=== PATIENT | female | born 1930 | race Caucasian/White ===

== ENCOUNTER 2016-11-05 11:19 | Observation (INO) | payer MEDICARE ==
[~2016-11-05] VITALS: Ht 152.4 cm; Wt 64.8 kg
[2016-11-05 11:35] VITALS: BP 149/67; PULSE 77; RESP 16; TEMP 98; O2SAT 96
--- NOTE | 2016-11-05 12:00 | PD ---
HPI Chief Complaint: GI Complaint Time Seen by Provider: 11:49 Travel History International Travel<30 days: No Contact w/Intl Traveler<30days: No Traveled to known affect area: No History of Present Illness HPI This is an 86-year-old female who presents to the emergency department with painless dark blood per rectum that started this morning when she woke up from sleep, saturating several pads, constant, persisting in the emergency department with no associated lightheadedness, dizziness or pain. She says she has been constipated for 2 weeks and has been taking prune juice and had a large bowel movement 2 days ago but she denies any rectal pain. At that time and has been doing fine yesterday since then. She's never had a colonoscopy before. She denies being on any blood thinners. [facility] Past Medical History Narrative Medical Hypertension Diabetes Hypothyroidism Cardiovascular Problems: Yes (htn on meds) Diabetes: Yes (type 2) ?: Not Social History Tobacco Use: No Allergies-Medications (Allergen,Severity, Reaction): Coded Allergies: No Known Allergies (Unverified , 11/05/16) Reported Meds & Prescriptions Reported Meds & Active Scripts Active Reported Calcium 500 + D (Calcium Carbonate-Vitamin D) 500-125 Mg-Unit Tab 1 Tab PO BID Centrum Silver (Multiple Vitamins W/ Minerals) 1 Tab 1 Tab PO DAILY Fish Oil ([place]-3 Fatty Acids) 1,000 Mg Cap DAILY Aleve (Naproxen Sodium) 220 Mg Tab 220 Mg PO DAILY PRN Metformin (Metformin HCl) 500 Mg Tab 500 Mg PO DAILY With a meal Amlodipine (Amlodipine Besylate) 10 Mg Tab 10 Mg PO DAILY Atorvastatin (Atorvastatin Calcium) 20 Mg Tab 20 Mg PO DAILY Levothyroxine (Levothyroxine Sodium) 100 Mcg Tab 100 Mcg PO DAILY Metoprolol Tartrate 25 Mg Tab 25 Mg PO DAILY Review of Systems Except as stated in HPI: all other systems reviewed are Neg Physical Exam Narrative GENERAL:Well appearing, no acute distress SKIN: Warm and dry. HEAD: Atraumatic. Normocephalic. EYES: Pupils equal and round. No injection or drainage. ENT: Moist mucous membranes NECK: Trachea midline. CARDIOVASCULAR: Regular rate and rhythm. No murmur appreciated. RESPIRATORY: Clear to auscultation. Breath sounds equal bilaterally. GASTROINTESTINAL: Abdomen soft, non-tender, nondistended, dried blood with clots around the rectum with no obvious hemorrhoids or fissures MUSCULOSKELETAL: No obvious deformities. NEUROLOGICAL: Awake and alert. No obvious cranial nerve deficits. Moving all extremities. PSYCHIATRIC: Appropriate mood and affect; insight and judgment normal. Data Data Last Documented VS Vital Signs Date Time Temp Pulse Resp B/P Pulse Ox O2 Delivery O2 Flow Rate FiO2 11/05/16 12:34 72 16 121/60 95 Room Air 11/05/16 11:35 98.0 Orders Complete Blood Count With Diff (11/05/16 11:56) Comprehensive Metabolic Panel (11/05/16 11:56) Prothrombin Time / Inr (Pt) (11/05/16 11:56) Act Partial Throm Time (Ptt) (11/05/16 11:56) ^ Insert Iv (11/05/16 11:56) Type And Screen (11/05/16 11:56) Admit Order (Ed Use Only) (11/05/16 13:09) Pantoprazole Inj (Protonix Inj) (11/05/16 13:15) Labs Laboratory Tests Test 11/05/16 12:25 White Blood Count 9.0 TH/MM3 Red Blood Count 3.96 MIL/MM3 Hemoglobin 12.9 GM/DL Hematocrit 37.7 % Mean Corpuscular Volume 95.2 FL Mean Corpuscular Hemoglobin 32.6 PG Mean Corpuscular Hemoglobin 34.2 % Concent Red Cell Distribution Width 12.4 % Platelet Count 262 TH/MM3 Mean Platelet Volume 8.6 FL Neutrophils (%) (Auto) 76.7 % Lymphocytes (%) (Auto) 14.8 % Monocytes (%) (Auto) 6.6 % Eosinophils (%) (Auto) 1.5 % Basophils (%) (Auto) 0.4 % Neutrophils # (Auto) 7.0 TH/MM3 Lymphocytes # (Auto) 1.3 TH/MM3 Monocytes # (Auto) 0.6 TH/MM3 Eosinophils # (Auto) 0.1 TH/MM3 Basophils # (Auto) 0.0 TH/MM3 CBC Comment DIFF FINAL Differential Comment Prothrombin Time 11.1 SEC Prothromb Time International 1.0 RATIO Ratio Activated Partial 26.4 SEC Thromboplast Time Sodium Level 139 MEQ/L Potassium Level 4.6 MEQ/L Chloride Level 101 MEQ/L Carbon Dioxide Level 29.5 MEQ/L Anion Gap 9 MEQ/L Blood Urea Nitrogen 18 MG/DL Creatinine 0.67 MG/DL Estimat Glomerular Filtration 83 ML/MIN Rate Random Glucose 117 MG/DL Calcium Level 9.3 MG/DL Total Bilirubin 0.5 MG/DL Aspartate Amino Transf 19 U/L (AST/SGOT) Alanine Aminotransferase 27 U/L (ALT/SGPT) Alkaline Phosphatase 72 U/L Total Protein 7.6 GM/DL Albumin 3.7 GM/DL MDM Medical Decision Making Medical Screen Exam Complete: Yes Emergency Medical Condition: Yes Interpretation(s) Afebrile, no tachycardia, hypertensive No leukocytosis Electrolytes are reassuring Coags are normal Differential Diagnosis Diverticulosis, AVM, colon cancer, hemorrhoids, ulcer Narrative Course This is an 86-year-old female who presents to the emergency department with painless dark blood from the rectum that started this morning and has persisted. I don't appreciate any hemorrhoids on exam although she does have a recent history of constipation. Given the persistence of bleeding I think it's reasonable to admit the patient for colonoscopy. Labs were obtained which were reassuring and her vital signs have been normal. Diagnosis Primary Impression: GI bleed Qualified Code: K92.2 - Gastrointestinal hemorrhage, unspecified gastrointestinal hemorrhage type Admitting Information Admitting Physician Requests: Observation Bibi Fair MD Nov 05, 2016 12:00
[2016-11-05] MEDS ORDERED: NAPR220T95 PO (12:06)
[2016-11-05] MEDS ORDERED: AMLO10TA2 PO (12:06)
[2016-11-05] MEDS ORDERED: ATOR20TA15 PO (12:06)
[2016-11-05] MEDS ORDERED: CENTTAB PO (12:06)
[2016-11-05] MEDS ORDERED: METF500T PO (12:06)
[2016-11-05] MEDS ORDERED: METO25TA3 PO (12:06)
[2016-11-05] MEDS ORDERED: FISH1000 (12:06)
[2016-11-05] MEDS ORDERED: LEVO100T5 PO (12:06)
[2016-11-05] MEDS ORDERED: CALCTAB23 PO (12:06)
[2016-11-05 12:34] VITALS: BP 121/60; PULSE 72; RESP 16; O2SAT 95
[2016-11-05 12:39] LABS: BASOPHIL % 0.4 % (0.0-2.0); EOSINOPHIL # 0.1 TH/MM3 (0-0.4); EOSINOPHIL % 1.5 % (0.0-4.0); HEMATOCRIT 37.7 % (35.0-46.0); HEMO FLAGS DIFF FINAL; LYMPH % 14.8 % (9.0-44.0); LYMPHOCYTE # 1.3 TH/MM3 (1.0-4.8); MEAN CELL VOLUME 95.2 FL (80.0-100.0); MEAN CORPUSCULAR HEMOGLOBIN 32.6 PG (27.0-34.0); MEAN CORPUSCULAR HGB CONC 34.2 % (32.0-36.0); MONO % 6.6 % (0.0-8.0); NEUT % 76.7 % (16.0-70.0); PLATELET COUNT 262 TH/MM3 (150-450); RED BLOOD COUNT 3.96 MIL/MM3 (4.00-5.30); RED CELL DISTRIBUTION WIDTH 12.4 % (11.6-17.2)
[2016-11-05 12:47] LABS: CHLORIDE 101 MEQ/L (98-107); POTASSIUM 4.6 MEQ/L (3.5-5.1); SODIUM (NA) 139 MEQ/L (136-145)
[2016-11-05 12:51] LABS: ANION GAP 9 MEQ/L (5-15); APTT (PATIENT) 26.4 SEC (24.3-30.1); BICARBONATE 29.5 MEQ/L (21.0-32.0); PROTHROMBIN TIME - PATIENT 11.1 SEC (9.8-11.6)
[2016-11-05 12:52] LABS: BLOOD UREA NITROGEN 18 MG/DL (7-18)
[2016-11-05 12:54] LABS: ALT (GPT) 27 U/L (10-53); AST (GOT) 19 U/L (15-37); GLOMERULAR FILTRATION RATE 83 ML/MIN (>89)
[2016-11-05 12:56] LABS: TOTAL BILIRUBIN ADULT 0.5 MG/DL (0.2-1.0)
[2016-11-05 12:57] LABS: ALKALINE PHOSPHATASE 72 U/L (45-117)
[2016-11-05] MEDS ORDERED: PANTOPRAZOLE SODIUM 40 MG VIAL IV PUSH ONE (13:15)
[2016-11-05] MEDS ORDERED: SODIUM CHLORIDE 0.9% FLUSH 5 ML FLUSH IV PRN (13:30)
[2016-11-05] MEDS ORDERED: DEXTROSE 50% IN WATER 50 ML VIAL(D50) IV PUSH PRN (13:30)
[2016-11-05] MEDS ORDERED: SODIUM CHLORIDE 0.9% FLUSH 5 ML FLUSH FLUSH PRN (13:30)
[2016-11-05] MEDS ORDERED: GLUCAGON 1 MG/ML VIAL OTHER PRN (13:30)
[2016-11-05 13:53] VITALS: BP 144/64; PULSE 73; RESP 16; O2SAT 95
[2016-11-05] MEDS ORDERED: ACETAMINOPHEN 325 MG TAB PO PRN (14:00)
--- NOTE | 2016-11-05 14:43 | HHI.HP ---
cc: Mirtha Rios MD [facility] Mirtha Rios MD Admission Diagnosis gi bleeding Diagnoses: (1) Rectal bleeding Diagnosis: Principal Chief Complaint: rectal "hemorrhage" Travel History International Travel<30 Days: No Contact w/Intl Traveler <30 Da: No Traveled to Known Affected Are: No History of Present Illness 86-year-old female with history of NIDDM, hypertension, thyroid disease, and HLD presents with complaint of rectal "hemorrhage". Patient states bleeding started at 8 AM and she had 4 different episodes. She denies any rectal pain. She denies any fevers or chills. Denies any recent vomiting or diarrhea. She does state she was constipated for 2 weeks and drank some prune juice. She denies any dizziness, lightheadedness, chest pain, or shortness of breath. Patient has never had a colonoscopy. She states she had a recent fall but it was when she had gotten up at night and stumbled in the dark when she was trying to sit down. She denies any head injury or syncope prior to fall, but does suffer from vertigo. States her legs have been swelling for the past month. Patient admits to chronic increased urinary frequency and incontinence but denies any dysuria. Denies being on anticoagulants. Review of Systems Except as stated in HPI: all other systems reviewed are Neg Past Family Social History Past Medical History NIDDM HTN HLD Thyroid disease Spinal stenosis Past Surgical History NONE Reported Medications Calcium 500 + D (Calcium Carbonate-Vitamin D) 500-125 Mg-Unit Tab 1 Tab PO BID Centrum Silver (Multiple Vitamins W/ Minerals) 1 Tab 1 Tab PO DAILY Fish Oil ([place]-3 Fatty Acids) 1,000 Mg Cap DAILY Aleve (Naproxen Sodium) 220 Mg Tab 220 Mg PO DAILY PRN Metformin (Metformin HCl) 500 Mg Tab 500 Mg PO DAILY With a meal Amlodipine (Amlodipine Besylate) 10 Mg Tab 10 Mg PO DAILY Atorvastatin (Atorvastatin Calcium) 20 Mg Tab 20 Mg PO DAILY Levothyroxine (Levothyroxine Sodium) 100 Mcg Tab 100 Mcg PO DAILY Metoprolol Tartrate 25 Mg Tab 25 Mg PO DAILY Allergies: Coded Allergies: No Known Allergies (Unverified , 11/05/16) Family History Mother: Lived till she was 3 months shy of 100 years old. Father: First IA at age 55. of [place] at age 67. Sister: Smoker; liver and pancreatic cancer. Patient denies any immediate family history of colon cancer. Social History Patient is with 3 children. Quit smoking cigarettes in 1973. Prior to this smoked 2 packs per day; started smoking at age of 25-30. Drinks alcohol socially. Denies any history of illicit drug use. Physical Exam Vital Signs Vital Signs Date Time Temp Pulse Resp B/P Pulse Ox O2 Delivery O2 Flow Rate FiO2 11/05/16 13:53 73 16 144/64 95 Room Air 11/05/16 12:34 72 16 121/60 95 Room Air 11/05/16 11:35 98.0 77 16 149/67 96 Physical Exam GENERAL: This is a pleasant well-nourished, well-developed patient, in no apparent distress. SKIN: No rashes, ecchymoses or lesions. Warm and dry. HEAD: Atraumatic. Normocephalic. EYES: No scleral icterus. No injection or drainage. CARDIOVASCULAR: Regular rate and rhythm without murmurs, gallops, or rubs. RESPIRATORY: Clear to auscultation. Breath sounds equal bilaterally. No wheezes , rales, or rhonchi. GASTROINTESTINAL: Abdomen soft, non-tender, nondistended. No palpable masses. No guarding. MUSCULOSKELETAL: No lower extremity edema. NEUROLOGICAL: Awake and alert. Five out of 5 muscle strength in bilateral quadriceps. 4/5 clinical assessment manager strength bilaterally. Normal speech. PSYCHIATRIC: Normal mood and affect. Insight and judgement normal. Laboratory Laboratory Tests Test 11/05/16 12:25 White Blood Count 9.0 Red Blood Count 3.96 Hemoglobin 12.9 Hematocrit 37.7 Mean Corpuscular Volume 95.2 Mean Corpuscular Hemoglobin 32.6 Mean Corpuscular Hemoglobin 34.2 Concent Red Cell Distribution Width 12.4 Platelet Count 262 Mean Platelet Volume 8.6 Neutrophils (%) (Auto) 76.7 Lymphocytes (%) (Auto) 14.8 Monocytes (%) (Auto) 6.6 Eosinophils (%) (Auto) 1.5 Basophils (%) (Auto) 0.4 Neutrophils # (Auto) 7.0 Lymphocytes # (Auto) 1.3 Monocytes # (Auto) 0.6 Eosinophils # (Auto) 0.1 Basophils # (Auto) 0.0 CBC Comment DIFF FINAL Differential Comment Prothrombin Time 11.1 Prothromb Time International 1.0 Ratio Activated Partial 26.4 Thromboplast Time Sodium Level 139 Potassium Level 4.6 Chloride Level 101 Carbon Dioxide Level 29.5 Anion Gap 9 Blood Urea Nitrogen 18 Creatinine 0.67 Estimat Glomerular Filtration 83 Rate Random Glucose 117 Calcium Level 9.3 Total Bilirubin 0.5 Aspartate Amino Transf 19 (AST/SGOT) Alanine Aminotransferase 27 (ALT/SGPT) Alkaline Phosphatase 72 Total Protein 7.6 Albumin 3.7 Blood Type A POSITIVE Antibody Screen NEGATIVE Blood Bank Comment Result Diagram: 11/05/16 1225 11/05/16 1225 Assessment and Plan Assessment and Plan 78 year-old female with: Lower GI bleeding: Significant rectal bleeding which started today. Hemoglobin normal. BP stable and BUN/creatinine normal. -Check Hemoglobin every 6 hours -AM CBC and BMP -Patient received dose of Protonix 40 mg IV in the ED. Continuous this daily. -Low rate IVF -Clear liquid diet -Consult GI Diabetes: Continue metformin. -Diabetic liquid diet -Bedside BGLs with low dose SSI as needed. HTN and HLD: Continue home medications Recent fall: mechanical, but patient also has spinal stenosis and possible vertigo. -Consult PT DVT prevention: SCDs. Venecia Cristina Nov 05, 2016 14:43
[2016-11-05] MEDS ORDERED: ONDANSETRON HCL 4 MG/2 ML VIAL IVP PRN (15:00)
[2016-11-05] MEDS: SODIUM CHLOR 0.9% 1000 ML INJ 1,000 ML IV SCH (15:37)
[2016-11-05 16:00] VITALS: BP 163/76; PULSE 74; RESP 20; TEMP 97.8; O2SAT 96
[2016-11-05] MEDS: INSULIN ASPART SUPPLEMENTAL SCALE SQ SCH ×2 (16:00→21:00)
[2016-11-05 18:36] LABS: HEMATOCRIT 34.2 % (35.0-46.0); REVIEW FLAG FINAL
[2016-11-05] MEDS ORDERED: PEG (High)/E-LYTE SOLN 4000 ML BTL PO ONE (19:00)
[2016-11-05] MEDS: CALCIUM/VITAMIN D 250 MG/125 U TAB PO SCH (19:47)
[2016-11-05] MEDS: SODIUM CHLORIDE 0.9% FLUSH 5 ML FLUSH IV SCH (19:48)
[2016-11-05 20:00] VITALS: BP 133/73; PULSE 75; RESP 18; TEMP 97.8; O2SAT 96
[2016-11-05] MEDS ORDERED: SODIUM CHLORIDE 0.9% FLUSH 5 ML FLUSH FLUSH SCH (21:00)
[2016-11-06] VITALS: BP 147/73; PULSE 70; RESP 18; TEMP 96; O2SAT 96
[2016-11-06 00:57] LABS: HEMATOCRIT 29.7 % (35.0-46.0); REVIEW FLAG FINAL
[2016-11-06 04:00] VITALS: BP 146/74; PULSE 74; RESP 18; TEMP 96.8; O2SAT 96
[2016-11-06] MEDS ORDERED: LEVOTHYROXINE SODIUM 100 MCG TAB PO SCH (06:00)
[2016-11-06] MEDS: SODIUM CHLOR 0.9% 1000 ML INJ 1,000 ML IV SCH (06:02)
[2016-11-06] MEDS: INSULIN ASPART SUPPLEMENTAL SCALE SQ SCH ×2 (06:07→11:00)
[2016-11-06 06:45] LABS: POTASSIUM 4.1 MEQ/L (3.5-5.1)
[2016-11-06 06:50] VITALS: BP 144/61; PULSE 83; RESP 20; TEMP 97.7; O2SAT 97
--- NOTE | 2016-11-06 07:02 | MB ---
cc: SERA GILMAN DATE OF CONSULTATION 11/05/2016 DATE OF [address] Meredith Wu REASON FOR REFERRAL Rectal bleeding. Thank you for the consultation. HISTORY An 86-year-old lady who has multiple medical problems but overall reasonably healthy. She lives at home with her . The patient denied any GI complaint until today in the morning when she started having rectal bleeding, she felt that she was hemorrhaging, started about 09:00 a.m., 4-5 episodes and continued to happen until now. She denied any rectal pain, some abdominal bloating. No nausea or vomiting. She stated that she has been constipated. She was taking prune juice for that and the denied any hematemesis, nausea, vomiting. She denied dizziness, lightheadedness, chest pain and shortness of breath. Never had colonoscopy before and no other symptom. PAST MEDICAL HISTORY 1. Diabetes. 2. Hypertension. 3. Hyperlipidemia. 4. Spinal stenosis. 5. Thyroid disease. SURGERY None according to her. MEDICATIONS Reviewed in the chart. No anticoagulation. ALLERGIES No known drug allergies. SOCIAL HISTORY She denied tobacco. She drinks alcohol socially. No drugs. FAMILY HISTORY Significant for NV and pancreatic cancer. No colon cancer. REVIEW OF SYSTEMS All 12-points negative except HPI. PHYSICAL EXAMINATION GENERAL: Alert, oriented, in no acute distress. VITAL SIGNS: Stable. HEENT: Pupils are reactive to light. NECK: Supple. CHEST: Clear. CARDIAC: Regular rate and rhythm. ABDOMEN: Soft, mildly distended, nontender. Positive bowel sounds. EXTREMITIES: No edema, clubbing or cyanosis. NEUROLOGIC: Intact. Awake, oriented. Muscle strength adequate for age. PSYCHOLOGIC: Appropriate. LABORATORY DATA White count 9.0, hemoglobin 12.9 now 11.7, platelets 262. INR 1.0. Chemistry negative. ASSESSMENT AND PLAN An 86-year-old lady with rectal bleeding, dark blood. The patient take NSAIDs. I discussed with the patient doing upper endoscopy and a colonoscopy. This could be diverticular bleed. It could be ischemia from constipation and straining. We will plan on doing these procedures tomorrow. I discussed with the patient the procedure and complications. She is agreeable to have it done and we will start preparation today. We will follow up her hemoglobin and give her packed RBCs as needed. The patient understood the plan and will proceed accordingly. MD SAMSON Davenport /6:57 PM /6:53 AM
[2016-11-06 07:08] LABS: BICARBONATE 28.6 MEQ/L (21.0-32.0)
[2016-11-06 07:14] LABS: AUTOMATED NEUTROPHIL # 4.9 TH/MM3 (1.8-7.7); BASOPHIL # 0.1 TH/MM3 (0-0.2); BASOPHIL % 1.1 % (0.0-2.0); EOSINOPHIL # 0.1 TH/MM3 (0-0.4); HEMATOCRIT 28.2 % (35.0-46.0); HEMO FLAGS DIFF FINAL; LYMPHOCYTE # 1.6 TH/MM3 (1.0-4.8); MEAN CELL VOLUME 91.6 FL (80.0-100.0); MEAN CORPUSCULAR HEMOGLOBIN 31.2 PG (27.0-34.0); MEAN CORPUSCULAR HGB CONC 34.1 % (32.0-36.0); MONO % 6.8 % (0.0-8.0); NEUT % 67.1 % (16.0-70.0); PLATELET COUNT 207 TH/MM3 (150-450); RED BLOOD COUNT 3.08 MIL/MM3 (4.00-5.30); RED CELL DISTRIBUTION WIDTH 12.5 % (11.6-17.2); WHITE BLOOD COUNT 7.2 TH/MM3 (4.0-11.0)
--- NOTE | 2016-11-06 08:19 | HHI.GIFU ---
Subjective Remarks feels ok, still some old blood coming from rectum Objective Vitals I&O Vital Signs Date Time Temp Pulse Resp B/P Pulse Ox O2 Delivery O2 Flow Rate FiO2 11/06/16 06:50 97.7 83 20 144/61 97 11/06/16 04:00 96.8 74 18 146/74 96 11/06/16 00:00 96.0 70 18 147/73 96 11/05/16 20:00 97.8 75 18 133/73 96 11/05/16 16:00 97.8 74 20 163/76 96 11/05/16 13:53 73 16 144/64 95 Room Air 11/05/16 12:34 72 16 121/60 95 Room Air 11/05/16 11:35 98.0 77 16 149/67 96 I/O 11/05/16 11/05/16 11/05/16 11/06/16 11/06/16 11/06/16 07:00 15:00 23:00 07:00 15:00 23:00 Intake Total 1300 ml 4363 ml Output Total 800 ml 4800 ml Balance 500 ml -437 ml Intake Oral 1300 ml 4000 ml IV Total 363 ml Output Stool Total 400 ml 4800 ml Estimated Blood Loss 400 ml # Voids 1 3 4 # Bowel Movements 3 Laboratory Laboratory Tests Test 11/05/16 11/05/16 11/06/16 11/06/16 12:25 18:25 00:30 06:05 White Blood Count 9.0 7.2 Red Blood Count 3.96 3.08 Hemoglobin 12.9 11.7 10.3 9.6 Hematocrit 37.7 34.2 29.7 28.2 Mean Corpuscular Volume 95.2 91.6 Mean Corpuscular Hemoglobin 32.6 31.2 Mean Corpuscular Hemoglobin 34.2 34.1 Concent Red Cell Distribution Width 12.4 12.5 Platelet Count 262 207 Mean Platelet Volume 8.6 9.1 Neutrophils (%) (Auto) 76.7 67.1 Lymphocytes (%) (Auto) 14.8 23.0 Monocytes (%) (Auto) 6.6 6.8 Eosinophils (%) (Auto) 1.5 2.0 Basophils (%) (Auto) 0.4 1.1 Neutrophils # (Auto) 7.0 4.9 Lymphocytes # (Auto) 1.3 1.6 Monocytes # (Auto) 0.6 0.5 Eosinophils # (Auto) 0.1 0.1 Basophils # (Auto) 0.0 0.1 CBC Comment DIFF FINAL DIFF FINAL Differential Comment Prothrombin Time 11.1 Prothromb Time International 1.0 Ratio Activated Partial 26.4 Thromboplast Time Sodium Level 139 143 Potassium Level 4.6 4.1 Chloride Level 101 105 Carbon Dioxide Level 29.5 28.6 Anion Gap 9 9 Blood Urea Nitrogen 18 15 Creatinine 0.67 0.58 Estimat Glomerular Filtration 83 98 Rate Random Glucose 117 112 Calcium Level 9.3 8.1 Total Bilirubin 0.5 Aspartate Amino Transf 19 (AST/SGOT) Alanine Aminotransferase 27 (ALT/SGPT) Alkaline Phosphatase 72 Total Protein 7.6 Albumin 3.7 Blood Type A POSITIVE Antibody Screen NEGATIVE Blood Bank Comment Physical Exam HEENT: Pupils round and reactive to light; normocephalic; atraumatic; no jaundice. Throat is clear. NECK: Neck is supple, no JVD, no lymphadenopathy. CHEST: Chest is clear to auscultation and percussion. CARDIAC: Regular rate and rhythm with no murmur gallop or rubs. ABDOMEN: Soft, nondistended, nontender; no hepatosplenomegaly; bowel sounds are present in all four quadrants. EXTREMITIES: No clubbing, cyanosis, or edema. SKIN: Normal; no rash; no jaundice. POULTRY FEED SUPERVISOR: No focal deficits; alert and oriented times three. Assessment and Plan Plan rectal bleed, anemia, EGD showed gastritis Bx done, colon showed diverticolosis , no active bleed, and small polyp removed by snare we will start feeding patient, and monitor H/H PRBC if needed. Zechariah Constantino MD Nov 06, 2016 08:19
[2016-11-06 08:55] VITALS: BP 131/76; PULSE 80; RESP 18; TEMP 97.6; O2SAT 98
[2016-11-06] MEDS ORDERED: PANTOPRAZOLE SODIUM 40 MG VIAL IV SCH (09:00)
[2016-11-06] MEDS ORDERED: metFORMIN HCL 500 MG TAB PO SCH (09:00)
[2016-11-06] MEDS ORDERED: METOPROLOL TARTRATE 25 MG TAB PO SCH (09:00)
[2016-11-06] MEDS ORDERED: MULTIVITAMIN HEMATINIC THERAPEUTIC TAB PO SCH (09:00)
[2016-11-06] MEDS ORDERED: ATORVASTATIN 20 MG TAB PO SCH (09:00)
--- NOTE | 2016-11-06 10:38 | HHI.PR ---
Subjective Remarks Seen and evaluated today in follow-up for GI bleeding. Hemoglobin slightly lower. No further bleeding noted. Status post upper and lower endoscopy with this showing gastritis and diverticular disease, polyp removed. Biopsies pending. Objective Vitals Vital Signs Date Time Temp Pulse Resp B/P Pulse Ox O2 Delivery O2 Flow Rate FiO2 11/06/16 08:55 97.6 80 18 131/76 98 11/06/16 06:50 97.7 83 20 144/61 97 11/06/16 04:00 96.8 74 18 146/74 96 11/06/16 00:00 96.0 70 18 147/73 96 11/05/16 20:00 97.8 75 18 133/73 96 11/05/16 16:00 97.8 74 20 163/76 96 11/05/16 13:53 73 16 144/64 95 Room Air 11/05/16 12:34 72 16 121/60 95 Room Air 11/05/16 11:35 98.0 77 16 149/67 96 I/O 11/05/16 11/05/16 11/05/16 11/06/16 11/06/16 11/06/16 07:00 15:00 23:00 07:00 15:00 23:00 Intake Total 1300 ml 4363 ml Output Total 800 ml 4800 ml Balance 500 ml -437 ml Intake Oral 1300 ml 4000 ml IV Total 363 ml Output Stool Total 400 ml 4800 ml Estimated Blood Loss 400 ml # Voids 1 3 4 # Bowel Movements 3 Result Diagram: 11/06/1660411/06/16 0605 Objective Remarks GENERAL: This is a well-nourished, well-developed patient, in no apparent distress. CARDIOVASCULAR: Regular rate and rhythm without murmurs, gallops, or rubs. RESPIRATORY: Clear to auscultation. Breath sounds equal bilaterally. No wheezes , rales, or rhonchi. GASTROINTESTINAL: Abdomen soft, non-tender, nondistended. Normal active bowel sounds MUSCULOSKELETAL: Extremities without clubbing, cyanosis, or edema. NEURO: Alert & Oriented x4 to person, place, time, situation. Moves all ext x4 A/P Problem List: (1) Rectal bleeding ICD Code: K62.5 Status: Acute Plan: Stable hemoglobin, status post endoscopy. Patient educated. We'll continue with proton pump inhibitor Repeat hemoglobin If stable likely discharge later today Assessment and Plan Likely discharge home Meredith Wu MD Nov 06, 2016 10:38
[2016-11-06] MEDS ORDERED: PROT40TA PO (10:43)
--- NOTE | 2016-11-06 10:44 | HHI.DCPOC ---
Discharge Care Plan Diagnosis: (1) GI bleed Goals to Promote Your Health * To prevent worsening of your condition and complications * To maintain your health at the optimal level Directions to Meet Your Goals Take your medications as prescribed Follow your dietary instruction Follow activity as directed Keep your appointments as scheduled Take your immunizations and boosters as scheduled If your symptoms worsen call your PCP, if no PCP go to Urgent Care Center or Emergency Room Smoking is Dangerous to Your Health. Avoid second hand smoke Call the 24-hour hour crisis hotline for domestic abuse at Meredith Wu MD Nov 06, 2016 10:44
[2016-11-06] MEDS: CALCIUM/VITAMIN D 250 MG/125 U TAB PO SCH (10:59)
[2016-11-06] MEDS: SODIUM CHLORIDE 0.9% FLUSH 5 ML FLUSH IV SCH (11:00)
[2016-11-06 14:34] LABS: HEMATOCRIT 27.6 % (35.0-46.0)
--- NOTE | 2016-11-06 14:35 | EKG ---
Date Performed: 11/06/2016 Time Performed: 07:06:30 PTAGE: 86 years EKG: Sinus rhythm Inferior/lateral ST-T changes are nonspecific Borderline ECG NO PREVIOUS TRACING DOCTOR: Osmani Granados Interpretating Date/Time 11/06/2016 14:33:56
[2016-11-06 14:37] LABS: REVIEW FLAG FINAL
[2016-11-06] MEDS ORDERED: PROPOFOL 200 MG/20 ML AMP IV ONE (16:31)
--- NOTE | 2016-12-12 08:05 | MR ---
cc: SERA GILMAN DATE: 11/06/2016 DATE OF : 1930 PROCEDURE Upper gastrointestinal endoscopy with biopsy and colonoscopy with snare polypectomy. INDICATION A pleasant 86-year-old lady who has a GI bleed and needs evaluation of her GI tract. DETAILS OF PROCEDURE After informing the patient of the procedure and complications, consent was signed. The patient was placed on her left lateral decub. Adequate sedation was achieved by propofol. The scope was placed in the mouth and advanced under video guidance to the second portion of the duodenum. The scope was drawn back to the stomach. Retroflexion was performed then the scope drawn back without immediate complication. After that a rectal exam was performed. The scope was placed in the rectum, advanced under video guidance to the cecum which was identified by the ileocecal valve and appendiceal orifice. The scope was drawn back gradually with visualization of the colonic mucosa down to the rectum. Retroflexion was performed then the scope drawn back without immediate complication. FINDINGS 1. Esophagus: There was an irregular Z-line, biopsy was done. Normal. 2. Stomach: Gastritis, biopsied to rule out H. pylori. 3. Duodenum: Normal. 4. Colon: A small polyp in the transverse colon removed by a snare. Diverticulosis, mostly on the left side. No active bleeding. ASSESSMENT Most likely the bleeding is from diverticular disease. RECOMMENDATIONS 1. Monitor H&H. 2. Packed RBC as needed. 3. Start feeding. 4. Follow-up biopsies. 5. Colonoscopy will be discussed with the patient to see if she would want to have one in the future with her age. MD GAURANG Davenport/ROSANNE /1:09 PM /7:53 AM
== END 2016-11-06 16:32 | disposition home or self-care (01) ==
LOC: PHED 11:19 → PHEDA 13:10 → PH3A 15:23
PROVIDERS: ADMIT Hospitalist; ATTEND Hospitalist
DX: D12.3 Benign neoplasm of transverse colon (principal); K29.71 Gastritis, unspecified, with bleeding; K57.90 Diverticulosis of intestine, part unspecified, without perforation or abscess without bleeding; K64.9 Unspecified hemorrhoids; K59.00 Constipation, unspecified; D64.9 Anemia, unspecified; I10 Essential (primary) hypertension; E78.5 Hyperlipidemia, unspecified; E03.9 Hypothyroidism, unspecified; E11.9 Type 2 diabetes mellitus without complications; Z87.891 Personal history of nicotine dependence; Z79.84 Long term (current) use of oral hypoglycemic drugs
CPT/HCPCS: 00740; 43239; 45385; 80048; 80053; 82948; 85014; 85018; 85025; 85610; 85730; 86850; 86900; 86901; 88305; 88312; 93005; 97162; 99284; C9113; G0378; G8987; G8988; J7030